=== PATIENT | female | born 1960 | race Caucasian/White ===

== ENCOUNTER 2016-09-17 13:18 | Emergency (ER) | payer OTHER ==
--- NOTE | ~2016-09-17 | CR126 ---
[facility] A Service of [facility] RADIOLOGY TEXT RESULTS PATIENT: BHUMI HUSAIN LOCATION: [facility] : 64 UNIT #: [id number] AGE: [address]: Bhumi Sanders APRN SEX: F ORDER DR: [id number] [facility] [address] [place], [place] [address] [id number] E MR#: [id number] Acc #: [id number] NAME: BHUMI HUSAIN : 1960 SEX: F STUDY DATE/TIME: 09/17/2016 14:26 UNIT: [facility] ROOM: STUDY DESCRIPTION: CR Foot Complete Min 3 View Lt Attending Physician: Bhumi Sanders A.P.R.N. Ordering Physician: Burton Alegria M.D. Primary Care Physician: Gage Monroe M.D. MEDICAL IMAGING REPORT This report is preliminary unless electronic signature is present EXAM Left foot HISTORY Left foot pain and swelling since surgery. COMPARISON STUDIES 08/25/2016. FINDINGS AP, lateral and oblique views of the foot were obtained. There have been extensive postoperative changes with metal plate transfixing the first metatarsal-phalangeal joint. There are 2 screws transfixing the first tarsal-metatarsal joint and there are multiple screws transfixing the talar-calcaneal and talar-navicular joints. There is a large amount of bone loss in the proximal foot. I do not see any significant change from prior study 08/25/2016. IMPRESSION 1. I cannot identify any significant change from the old study from 08/25/2016. The patient has extensive postoperative changes in the first digit and hindfoot with marked loss of bony volume from the calcaneus and talus and there appears to be fusion of the talus, calcaneus, navicular and cuboid bones, or attempted fusion of the bones. There is marked soft tissue swelling in the foot. Dictated by... Isaias Dewitt M.D. THIS IS AN ELECTRONICALLY VERIFIED REPORT Isaias Dewitt M.D. at 09/18/2016 7:03 AM [facility] A Service of [facility] RADIOLOGY TEXT RESULTS PATIENT: BHUMI HUSAIN LOCATION: [facility] : 64 UNIT #: [id number] AGE: [address]: Bhumi Sanders APRN SEX: F ORDER DR: Leah TD: 09/17/2016 22:49 JOB #: [id number] MEDICAL IMAGING REPORT Page 1 of 1 COPY
[~2016-09-17 13:18] MED LIST: ABILIFY2 MG PO; BACLOFEN20 M1 PO; CARVEDILOL25 MG PO; CITALOPRAM HBR40 MG PO; CLARITIN-D1 TAB.SR3 PO; DICLOFENAC PO; GABAPENTIN300 MG PO; LOSARTAN POTASS25 MG PO; OXYCONTIN20 MG PO; PERCOCET5/325 PO; PRAVACHOL PO; XARELTO10 MG PO
== END 2016-09-17 15:25 | disposition home or self-care (01) ==
LOC: CFTX 13:18 → CED 13:18 → CFTX 14:43
DX: M79.672 Pain in left foot (principal); G89.29 Other chronic pain; I10 Essential (primary) hypertension; F17.200 Nicotine dependence, unspecified, uncomplicated
CPT/HCPCS: 29515; 73630; 99283; J1885

== ENCOUNTER → 2016-09-27 | Outpatient (CLI) | payer OTHER ==
--- NOTE | ~2016-09-27 | CT92 ---
[facility] A Service of [facility] RADIOLOGY TEXT RESULTS PATIENT: JEANNINE HUSAIN [facility] 64 UNIT #: [id number] AGE: [address]: Rach Cabral MD SEX: F ORDER DR: [id number] [facility] [address] [place], [place] [address] [id number] O MR#: [id number] Acc #: [id number] NAME: JEANNINE HUSAIN : 1960 SEX: F STUDY DATE/TIME: 09/27/2016 10:27 UNIT: [facility] ROOM: STUDY DESCRIPTION: CT Lower Ext Lt Wo Cont Attending Physician: Cass Cabral M.D. Referring Physician: Cass Cabral M.D. Ordering Physician: Cass Cabral M.D. Primary Care Physician: Gage Monroe M.D. MEDICAL IMAGING REPORT This report is preliminary unless electronic signature is present EXAM CT left ankle. HISTORY 56-year-old female status post ankle fusion surgery May 31. Initial injury 2008. Continued pain. COMPARISON CT left ankle 01/22/2016, foot and ankle films 09/21/2016. TECHNIQUE Thin section axial images performed through the left ankle with multiplanar reconstructed images reviewed at a workstation. This CT exam was performed with one or more of the following radiation dose reduction techniques: automatic exposure control, adjustment of mA and/or kV according to patient size, and iterative reconstruction. FINDINGS Patient has undergone revision of the hindfoot fixation procedure with removal of several large screws within the calcaneus and placement of partially threaded cannulated screws traversing the calcaneus across the subtalar joint. There is extensive osteolysis particularly around the more lateral of the calcaneal screws and the osteolysis is within the lateral aspect of the talar dome. 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 Subchondral lucencies also noted within the distal tibia, compatible areas of osteolysis, and there is new or periostitis along the posterior cortex of the distal tibia. Findings highly concerning for underlying septic arthritis. This is supported by a circumferential soft tissue swelling and edema as well as abnormal fluid collection along the medial aspect of the ankle. There is a partial fusion across the subtalar joint with some STS. [facility] A Service of [facility] RADIOLOGY TEXT RESULTS PATIENT: JEANNINE HUSAIN LOCATION: [facility] : 64 UNIT #: [id number] AGE: [address]: Rach Cabral MD SEX: F ORDER DR: incorporation of the bone graft material. New instrumentation is also noted across the talonavicular joint with a partial fusion across the talonavicular joint. Instrumentation is noted in the distal first metatarsal and also within the proximal first metatarsal across the medial cuneiform metatarsal joint, but no significant effusion seen across the joint. No fracture or loosening of instrumentation. Arthritic changes seen at the hallux sesamoids. Diffuse osteopenia and generalized soft tissue swelling and edema about the foot. Normal alignment maintained across the tarsometatarsal joint. The metatarsophalangeal joints are unremarkable. There is hindfoot valgus with impaction of the distal fibula on the lateral margin of the calcaneus. Dystrophic calcification noted within the peroneal tendons. Posterior tibial tendon is not well delineated and may be partially torn. Flexor hallucis longus and flexor digitorum longus tendons appear intact. Anterior extensor tendons unremarkable. Extensive dystrophic calcification noted about the hindfoot. IMPRESSION 1. Interval development of fragmentation and collapse of the talus with destruction at the ankle joint with extensive osteolysis distal tibia and along the talar dome and lateral margin of the talus. In combination with a soft tissue changes this is highly concerning for septic arthritis. Multiple small fluid collections are seen in the anterior joint line and along the medial aspect the joint could represent small abscesses or fluid collections. Some of these appear to be at least partially calcified. 2. Due to a revision of instrumentation of the hindfoot with attempt at a subtalar joint fusion. There is felt to be at least partial fusion across the subtalar joint estimated at about 25%. 3. Postsurgical changes from apparent fusion of the first tarsometatarsal joint. Minimal fusion across the first TMT joint with intact instrumentation. 4. Suspected tear of the posterior tibial tendon which may be contributing factor the patient's hindfoot valgus. Dictated by... Precious Jacob M.D. THIS IS AN ELECTRONICALLY VERIFIED REPORT Precious Jacob M.D. at 09/27/2016 5:03 PM Gustavo TD: 09/27/2016 13:32 JOB #: [id number] MEDICAL IMAGING REPORT Page 1 of 1 COPY
== END | disposition home or self-care (01) ==
LOC: CCAT 09:33
DX: M25.572 Pain in left ankle and joints of left foot (principal); M89.572 Osteolysis, left ankle and foot; Z98.1 Arthrodesis status
CPT/HCPCS: 73700